=== PATIENT | female | born 1965 | race Asian ===

== ENCOUNTER 2023-08-09 21:28 | Emergency (ER) | payer MEDICAID, OTHER ==
[~2023-08-09] VITALS: Ht 162.6 cm; Wt 72.1 kg
[2023-08-10] MEDS ORDERED: IBUP1TAB5 PO (01:29)
[2023-08-10] MEDS ORDERED: IBUPROFEN 600 MG TAB PO ONE (02:09)
[2023-08-10] MEDS: IBUPROFEN 600 MG TAB PO ONE (02:12)
[2023-08-10 02:27] VITALS: BP 137/78; PULSE 78; RESP 20; TEMP 98.2; O2SAT 98
== END 2023-08-10 02:26 | disposition home or self-care (01) ==
LOC: ER 21:28
DX: S93.402A Sprain of unspecified ligament of left ankle, initial encounter (principal); S93.602A Unspecified sprain of left foot, initial encounter; Z88.0 Allergy status to penicillin; Z88.6 Allergy status to analgesic agent; X50.1XXA Overexertion from prolonged static or awkward postures, initial encounter; Y93.89 Activity, other specified; Y92.89 Other specified places as the place of occurrence of the external cause; Y99.8 Other external cause status
CPT/HCPCS: 29515; 73610; 73630